=== PATIENT | female | born 1965 | race Hispanic/Latino ===

== ENCOUNTER 2016-08-02 17:49 | Inpatient (IN) | payer BC ==
[~2016-08-02] VITALS: Ht 157.5 cm; Wt 59.1 kg
[2016-08-02 18:48] LABS: HEMATOCRIT 34.3 % (36.0-46.0); MCH 31.5 PG (29.0-34.0); MCHC 34.7 G/DL (30.0-36.0); MCV 90.7 FL (83-99); MEAN PLAT.VOLUME 9.1 uM^3 (9.5-12.4); PLATELET COUNT 195 K/uL (156-360); RBC DIS.WIDTH-CV 12.5 % (11.8-14.6); RBC DIS.WIDTH-SD 41.4 % (39-53); RED BLOOD COUNT 3.78 M/uL (3.80-5.20); WHITE BLOOD COUNT 16.1 K/uL (4.1-10.2)
[2016-08-02 18:55] LABS: CHLORIDE 103 mEq/L (99-109); POTASSIUM 3.6 mEq/L (3.7-5.4); SODIUM 140 mEq/L (136-147)
[2016-08-02 18:57] LABS: GLUCOSE 111 mg/dL (70-99)
[2016-08-02 18:58] LABS: ANION GAP 10 MEQ/L (2-14)
[2016-08-02 18:59] LABS: TOTAL BILIRUBIN 1.6 mg/dL (0.0-1.0)
[2016-08-02 19:00] LABS: ALKALINE PHOSPHATASE 60 IU/L (3-129)
[2016-08-02 19:02] LABS: UREA NITROGEN (BUN) 10 mg/dL (9-23)
[2016-08-02 19:09] LABS: GFR ESTIMATE (CALCULATED) > 59 mL/min/; QUANTITATIVE HCG < 4.0 MIU/ML
[2016-08-02 22:48] LABS: ADD MIUA? YES; BILIRUBIN NEGATIVE; BLOOD LARGE; COLOR YELLOW ((YELLOW)); GLUCOSE (STRIP) NEGATIVE; KETONES 20; LEUKOCYTES NEGATIVE; NITRITE NEGATIVE; PROTEIN (STRIP) NEGATIVE; UROBILINOGEN 0.2 MG/DL (0.2-1.0)
[2016-08-02 23:35] LABS: BACTERIA RARE /HPF; EPITHELIAL CELLS RARE /HPF; MUCUS TRACE /LPF; RED BLOOD CELLS 20-30 /HPF (0-5); UCUL ADDED? NO; WHITE BLOOD CELLS 0-5 /HPF (0-5)
[2016-08-02 23:48] LABS: SPECIFIC GRAVITY 1.065 (1.000-1.030)
[2016-08-03 00:47] VITALS: BP 123/57
[2016-08-03] MEDS ORDERED: HYDROCODON-ACE1 EA11 PO (06:04)
[2016-08-03] MEDS ORDERED: AUGMENTIN875 MG PO (06:04)
[2016-08-03 09:10] VITALS: BP 105/56
[2016-08-03 10:51] VITALS: BP 109/59
[2016-08-03 16:22] VITALS: BP 112/59
[2016-08-03 20:28] VITALS: BP 114/67
[2016-08-03 23:38] VITALS: BP 122/67
[2016-08-04 04:50] VITALS: BP 126/60
[2016-08-04 07:03] LABS: HEMATOCRIT 25.4 % (36.0-46.0); MCH 32.6 PG (29.0-34.0); MCHC 34.6 G/DL (30.0-36.0); MCV 94.1 FL (83-99); MEAN PLAT.VOLUME 9.7 uM^3 (9.5-12.4); PLATELET COUNT 139 K/uL (156-360); RBC DIS.WIDTH-SD 44.9 % (39-53); WHITE BLOOD COUNT 8.9 K/uL (4.1-10.2)
[2016-08-04 07:55] VITALS: BP 125/72
[2016-08-04 11:00] VITALS: BP 118/65
[2016-08-04 15:25] VITALS: BP 136/72
[2016-08-04 20:13] VITALS: BP 131/70
[2016-08-05 00:44] VITALS: BP 127/59
[2016-08-05 07:05] LABS: HEMATOCRIT 27.4 % (36.0-46.0); MCH 31.4 PG (29.0-34.0); MCHC 33.9 G/DL (30.0-36.0); MCV 92.6 FL (83-99); PLATELET COUNT 151 K/uL (156-360); RBC DIS.WIDTH-CV 12.7 % (11.8-14.6); RBC DIS.WIDTH-SD 43.4 % (39-53); RED BLOOD COUNT 2.96 M/uL (3.80-5.20); WHITE BLOOD COUNT 8.1 K/uL (4.1-10.2)
[2016-08-05 07:33] VITALS: BP 129/61
[2016-08-05 07:37] LABS: ANION GAP 8 MEQ/L (2-14); CHLORIDE 108 MEQ/L (99-109); GFR ESTIMATE (CALCULATED) > 59 mL/min/; GLUCOSE 95 mg/dL (70-99); POTASSIUM 3.5 MEQ/L (3.7-5.4); SAMPLE HEMOLYSIS CHECK 0; SAMPLE ICTERIC CHECK 0; SAMPLE LIPEMIA CHECK 0; SODIUM 145 MEQ/L (136-147); UREA NITROGEN (BUN) 6 mg/dL (9-23)
[2016-08-05 16:22] VITALS: BP 140/74
[2016-08-05 23:23] VITALS: BP 133/63
[2016-08-06 07:04] LABS: HEMATOCRIT 29.1 % (36.0-46.0); MCH 31.2 PG (29.0-34.0); MCHC 34.4 G/DL (30.0-36.0); MCV 90.7 FL (83-99); MEAN PLAT.VOLUME 9.5 uM^3 (9.5-12.4); PLATELET COUNT 189 K/uL (156-360); RBC DIS.WIDTH-CV 12.2 % (11.8-14.6); RBC DIS.WIDTH-SD 40.6 % (39-53); RED BLOOD COUNT 3.21 M/uL (3.80-5.20); WHITE BLOOD COUNT 6.6 K/uL (4.1-10.2)
[2016-08-06 07:46] VITALS: BP 143/70
== END 2016-08-06 14:13 | disposition home or self-care (01) | DRG 853 ==
LOC: EDBD 17:49 → EME 17:49 → EDOF 22:40 → 3EAST 22:40
PROVIDERS: Surgery
PROC: 0DTJ0ZZ Resection of Appendix, Open Approach (ICD-10-PCS; principal; 2016-08-03)
DX: A41.9 Sepsis, unspecified organism (principal); K35.3 Acute appendicitis with localized peritonitis; R18.8 Other ascites; K59.00 Constipation, unspecified; E86.0 Dehydration
CPT/HCPCS: 74177; 80048; 80053; 81003; 84702; 85027; 87070; 87075; 87205; 88304; 99281; 99285; J0295; J0330; J1170; J2250; J2270; J2405; J3010; J7040; J7050; S0020